=== PATIENT | male | born 2000 | race Caucasian/White ===

== ENCOUNTER 2021-02-07 10:30 | Emergency (ER) | payer OTHER ==
[2021-02-07 10:50] VITALS: BP 168/97; PULSE 73; TEMP 98.2; BMI 24.9
[2021-02-07] MEDS ORDERED: morphine CARPU-JECT 4 MG/1 ML DISP.SYRIN IVPUSH ONE (11:29)
[2021-02-07] MEDS ORDERED: LIDOCAINE HCL 2% (20ML MULTI-DOSE VIAL) ONE (11:44)
[2021-02-07] MEDS ORDERED: morphine SULFATE 4 MG/ML VIAL ONE (11:54)
[2021-02-07] MEDS ORDERED: AMOX TR/POT CLAV 500MG/125MG TABLETS (FP) PO ONE (12:48)
[2021-02-07] MEDS ORDERED: DIPHTH,PERTUSS(ACELL),TET 0.5 ML DISP.SYRIN IM ONE ×2 (12:48→13:17)
[2021-02-07] MEDS ORDERED: AMOX TR/POT CLAV 500MG/125MG TABLETS (FP) ONE (13:17)
== END 2021-02-07 14:15 | disposition home or self-care (01) ==
LOC: JER 10:30
PROC: 3E0233Z Introduction of Anti-inflammatory into Muscle, Percutaneous Approach (ICD-10-PCS; principal; 2021-02-07)
PROC: 3E033NZ Introduction of Analgesics, Hypnotics, Sedatives into Peripheral Vein, Percutaneous Approach (ICD-10-PCS; 2021-02-07)
DX: S62.525B Nondisplaced fracture of distal phalanx of left thumb, initial encounter for open fracture (principal); S61.112A Laceration without foreign body of left thumb with damage to nail, initial encounter; W31.2XXA Contact with powered woodworking and forming machines, initial encounter
CPT/HCPCS: 73140-TC-LT-FY; 90715; 96374; 96375; 99284-25

== ENCOUNTER 2022-11-19 12:50 | Emergency (ER) | payer OTHER ==
[2022-11-19 12:58] VITALS: BP 145/83; PULSE 68; RESP 18; TEMP 98.7; BMI 28.0
[2022-11-19] MEDS ORDERED: DEXAMETHASONE LIQUID 0.5 MG/5 ML PO ONE (13:21)
[2022-11-19] MEDS ORDERED: DEXAMETHASONE SOD PHOSPHATE 10 MG/1 ML VIAL ONE (13:22)
== END 2022-11-19 13:47 | disposition home or self-care (01) ==
LOC: JERFT 12:50
DX: L50.0 Allergic urticaria (principal)
CPT/HCPCS: 99283-25